=== PATIENT | male | born 1995 | race Hispanic/Latino ===

== ENCOUNTER 2020-08-08 12:02 | Emergency (ER) | payer SELFPAY ==
[2020-08-08 12:21] VITALS: BP 136/79; PULSE 79; RESP 16; TEMP 36.7; O2SAT 99
--- NOTE | 2020-08-08 12:28 | ED.URI ---
HPI - URI/Sore Throat General Chief Complaint: Upper Respiratory Infection Stated Complaint: Sore throat Time Seen by Provider: 08/08/20 12:22 Source: patient and RN notes reviewed Mode of arrival: ambulatory Limitations: no limitations History of Present Illness HPI Narrative: 25-year-old male presents to the emergency room with 2 to 3 days of throat pain. Hurts to swallow. Denies fevers. No shortness of breath. No trouble breathing. No chest pain or abdominal pain. Taking Tylenol and ibuprofen with no improvement. Denies cough, nasal congestion, rhinorrhea, sinus pain Related Data Allergies Allergy/AdvReac Type Severity Reaction Status Date / Time No Known Allergies Allergy Verified 08/08/20 12:09 Review of Systems Review of Systems: Narrative: CONSTITUTIONAL: Denies fever, chills, or sweats. EYES: Denies visual changes, redness, or discharge. ENT: Denies rhinorrhea, congestion, or otalgia. Sore throat and pain with swallowing. CARDIOVASCULAR: Denies chest pain, palpitations, or edema. RESPIRATORY: Denies cough or dyspnea. GASTROINTESTINAL: Denies abdominal pain, nausea, vomiting, or diarrhea. GENITOURINARY: Denies dysuria or hematuria. SKIN: Denies rash or itching. MUSCULOSKELETAL: Denies back pain, joint pain, or myalgia. NEUROLOGIC: Denies headache, numbness, All other systems reviewed are negative, except as documented in HPI. PMFSH Social History Social History Gender identity (if verbalized by the patient): Male Comments At the time of my signature, I reviewed and agree with the nursing past medical, surgical, social, and family history. There is no relevant family history pertinent to the patient complaint. Exam Narrative: Exam Narrative: GENERAL: This is a well-nourished, well-developed patient, in no apparent distress. HEAD: normocephalic, atraumatic. EYES: PERRL. Sclera clear/white. Vision is grossly intact. EARS: External ears normal, auditory canals clear and without drainage, TMs normal without perforation. Hearing grossly intact. NOSE: External nose normal with no obvious nasal discharge, nares without redness, no rhinorrhea. THROAT: Mucous membranes moist. NECK: Neck supple, non-tender. + lymphadenopathy bilateral. no masses or thyromegaly. CARDIOVASCULAR: Regular rate and rhythm without murmurs, gallops, or rubs. RESPIRATORY: Clear to auscultation. Breath sounds equal bilaterally. No wheezes, rales, or rhonchi. GASTROINTESTINAL: Abdomen soft, non-tender, nondistended. SKIN: warm, intact with no suspicious lesions or rash, good texture and turgor. NEURO: awake, alert, and oriented to person, place and time. There were no obvious focal neurologic abnormalities. EXTREMITIES: No clubbing, cyanosis, or edema. No joint tenderness, effusion, or edema noted. BACK: Nontender without deformity or crepitance. No flank tenderness. HENMT: Mouth: Yes moist mucous membranes Throat: uvula midline Other: Tonsils bilaterally +3, red. Exudate noted. Course Vital Signs Vital signs: Vital Signs Temperature 98.1 F 08/08/20 12:21 Pulse Rate 79 08/08/20 12:21 Respiratory Rate 16 08/08/20 12:21 Blood Pressure 136/79 08/08/20 12:21 Pulse Oximetry 99 08/08/20 12:21 Temperature 98.1 F 08/08/20 12:21 Pulse Rate 79 08/08/20 12:21 Respiratory Rate 16 08/08/20 12:21 Blood Pressure 136/79 08/08/20 12:21 Pulse Oximetry 99 08/08/20 12:21 MDM - URI/Sore Throat Lab Data Labs: Strep Screen Presumptive Negative *(Reference Range: Negative)* Discharge Plan Discharge Clinical Impression: Acute tonsillitis Patient Disposition: Home, Self-Care Condition: Stable Instructions: Antibiotic Form, Tonsillitis (ED) Additional Instructions: Once you are on antibiotics for 24 hours it is important you throw away your toothbrush and start using a new one, you do not want to reinfect yourself Tylenol alternating with
== END 2020-08-08 12:40 | disposition home or self-care (01) ==
PROVIDERS: Emergency Provider Nurse Practitioner
DX: J03.90 Acute tonsillitis, unspecified (principal)
CPT/HCPCS: 87081; 87880; 99203; G0463

== ENCOUNTER 2023-10-05 00:54 | Emergency (ER) | payer SELFPAY ==
[2023-10-05 00:54] VITALS: BP 146/80; PULSE 103; RESP 20; TEMP 36.6; O2SAT 98
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
[2023-10-05 02:10] VITALS: BP 138/75; PULSE 97; RESP 19; TEMP 36.6; O2SAT 98
== END 2023-10-05 02:12 | disposition home or self-care (01) ==
PROVIDERS: Emergency Provider Physician Assistant
DX: S01.01XA Laceration without foreign body of scalp, initial encounter (principal); X99.0XXA Assault by sharp glass, initial encounter
CPT/HCPCS: 12002; 99283

== ENCOUNTER 2024-02-13 17:02 | Emergency (ER) | payer MEDICAID, SELFPAY ==
--- NOTE | ~2024-02-13 | CT_ITS ---
EXAMINATION: CT brain wo con DATE: 02/13/2024 18:26 INDICATION: WINSTON X 6 days, dizziness, recent HI . TECHNIQUE: Computed tomography (CT) of the head was performed without intravenous contrast. The mA wa s adjusted according to patient size. Iterative reconstruction technique was employed. The dose-lengt h product was 605.33 mGy-cm. COMPARISON: None. FINDINGS: No acute intracranial hemorrhage or extra-axial fluid collection. No hydrocephalus, mass, or herniation. No acute ischemic infarct. Unremarkable dural venous sinus attenuation. No acute osseous abnormality. Right maxillary retention cyst/polyp, the remaining aerated spaces are clear. IMPRESSION: No acute intracranial process. Reviewed, dictated and finalized at location K.
[2024-02-13 17:04] VITALS: BP 130/79; PULSE 98; RESP 18; TEMP 36.2; O2SAT 100
[2024-02-13 17:41] VITALS: BP 121/79; PULSE 91; RESP 18; O2SAT 96
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
[2024-02-13] MEDS: METOCLOPRAMIDE HCL INJ 10 MG/2 ML VIAL IV PUSH (18:55)
[2024-02-13] MEDS: diphenhydrAMINE HCl INJ 50 MG/ML VIAL 25 MG IV PUSH (18:56)
[2024-02-13] MEDS: KETOROLAC 30 MG/ML VIAL (*BKC) IV PUSH (18:56)
[2024-02-13] MEDS: SODIUM CHLORIDE 0.9% IV 1,000 ML 999 ML IV CONT (18:56)
== END 2024-02-13 19:48 | disposition home or self-care (01) ==
PROVIDERS: Emergency Provider Physician Assistant
DX: G43.909 Migraine, unspecified, not intractable, without status migrainosus (principal)
CPT/HCPCS: 70450; 96361; 96374; 96375; 99284; J1200; J1885; J2765; J7030

== ENCOUNTER 2024-05-10 07:18 | Outpatient (CLI) | payer OTHER, SELFPAY ==
--- NOTE | ~2024-05-10 | MR_ITS ---
EXAMINATION: MR brain/brain stem wo/w con DATE: 05/10/2024 08:06 INDICATION: Headache TECHNIQUE: Magnetic resonance imaging (MRI) of the brain and brainstem was performed without and with 20 mL Multihance intravenous contrast. Sequences included sagittal and axial T1-weighted SE, axial d iffusion-weighted FS SE, axial 3D SWAN, axial T2*-weighted GRE, axial T2-weighted FLAIR, and axial T2 -weighted FSE. Postcontrast axial and coronal T1-weighted SE was obtained. Apparent diffusion coeffic ient (ADC) maps were created. COMPARISON: None. FINDINGS: There are no areas of restricted diffusion to suggest acute infarction. No intracranial hemorrhage or abnormal intracranial mass lesion. Single small nonspecific focus of nonspecific increased T2-weight ed signal intensity in the left frontal periventricular white matter. There are no intraparenchymal s ignal abnormalities seen on the other pulse sequences. The ventricles are symmetric and normal in siz e. There are no abnormal extra-axial fluid collections. Flow voids are seen in the cerebral arteries on the T2-weighted sequences consistent with their expected patency. Prominent mucous retention cyst in the right maxillary sinus. Visualized orbits and soft tissues are unremarkable. There are no areas of abnormal enhancement on the post contrast images. IMPRESSION: 1. Single nonspecific small focus of white matter T2 hyperintensity in the periventricular left front al lobe which remains within normal limits for age. Otherwise normal brain. 2. Prominent mucous retention cyst in the right maxillary sinus. Reviewed, dictated and finalized at location A. IMPRESSION: 1. Single nonspecific small focus of white matter T2 hyperintensity in the lucita ventricular left frontal lobe which remains within normal limits for age. Other ladd normal brain. 2. Prominent mucous retention cyst in the right maxillary sinus.
== END 2024-05-10 07:19 | disposition home or self-care (01) ==
PROVIDERS: PCP Registered Nurse; Visit Provider Registered Nurse
DX: J34.1 Cyst and mucocele of nose and nasal sinus (principal); R51.9 Headache, unspecified
CPT/HCPCS: 70553; A9577